=== PATIENT | male | born 1940 | race Caucasian/White ===

== ENCOUNTER 2019-11-01 13:12 | Outpatient (CLI) | payer MEDICARE, MEDICAID, SELFPAY | END 2019-11-01 13:13 | disposition home or self-care (01) | PROVIDERS: Family Provider Family Medicine; PCP Nurse Practitioner Family; Visit Provider Thoracic Surgery (Cardiothoracic Vascular Surgery) | DX: E11.621 Type 2 diabetes mellitus with foot ulcer (principal); L97.512 Non-pressure chronic ulcer of other part of right foot with fat layer exposed; M25.571 Pain in right ankle and joints of right foot; L98.499 Non-pressure chronic ulcer of skin of other sites with unspecified severity | CPT/HCPCS: 11042; 73630; G0463; L3260 ==

== ENCOUNTER 2019-11-01 15:20 | Outpatient (CLI) | payer MEDICARE, MEDICAID, SELFPAY ==
--- NOTE | 2019-11-01 15:31 | XR_ITS ---
WS: [id number] XR foot RT min 3V* [id number] REASON FOR EXAM: PAIN, REDNESS, NON-HEALING ULCER, R/O OSTEO FINDINGS: 3 views of the right foot did not show definite osteomyelitis or destructive changes of the phalanges, metatarsals, tarsals. The calcaneus was normal. There is spurring off the anterior talus. XR/XR foot RT min 3V* [id number] IMPRESSION: Essentially negative bony outline of the foot.
== END 2019-11-01 15:21 | disposition home or self-care (01) ==
LOC: RAD 15:27
PROVIDERS: Family Provider Family Medicine; PCP Nurse Practitioner Family; Visit Provider Thoracic Surgery (Cardiothoracic Vascular Surgery)
DX: M25.571 Pain in right ankle and joints of right foot (principal); L98.499 Non-pressure chronic ulcer of skin of other sites with unspecified severity
CPT/HCPCS: 73630

== ENCOUNTER 2019-11-08 09:06 | Outpatient (CLI) | payer MEDICARE, MEDICAID, SELFPAY | END 2019-11-08 09:07 | disposition home or self-care (01) | LOC: WOUND 09:07 | PROVIDERS: Family Provider Family Medicine; PCP Nurse Practitioner Family; Visit Provider Thoracic Surgery (Cardiothoracic Vascular Surgery) | DX: E11.621 Type 2 diabetes mellitus with foot ulcer (principal); L97.512 Non-pressure chronic ulcer of other part of right foot with fat layer exposed; R52 Pain, unspecified; L97.909 Non-pressure chronic ulcer of unspecified part of unspecified lower leg with unspecified severity | CPT/HCPCS: 11042; 93970 ==

== ENCOUNTER 2019-11-08 10:41 | Outpatient (CLI) | payer MEDICARE, MEDICAID, SELFPAY ==
--- NOTE | 2019-11-08 10:48 | USCV_ITS ---
Jj Johansen Jr Age: 78 Gender: M : 1940 Exam Date: 11/08/2019 10:56 Ordering Phys: Elvin Centeno MD (Andy) ([email or web address]) Technologist: Gaurav Cisneros Exam Location: [facility] [place] Indication: HISTORY: non healing ulcer PROCEDURES: Bilateral duplex Venous Insufficiency study of the Deep and Superficial systems was carried out according to normal protocol with the patient in supine positon for deep system and dependent position for the superficial system. FINDINGS: There is no evidence of bilateral deep vein thrombosis. No evidence of superficial thrombosis in the bilateral saphenous system. No evidence of reflux was noted in the RIGHT deep venous system. Reflux is demonstrated in the deep venous system at the level of the LEFT Femoral and Popliteal veins. No venous reflux noted in the RIGHT greater saphenous vein. No venous reflux noted in the RIGHT small saphenous vein. Venous reflux was demonstrated in the LEFT SFJ with a spectral display of greater than 500 milliseconds. No venous reflux noted in the LEFT greater saphenous vein. No venous reflux noted in the LEFT small saphenous vein. CONCLUSIONS No evidence of DVT in the above-mentioned identifiable veins. Significant deep venous reflux of greater than 1000 ms were noted at the left femoral and popliteal veins. Significant venous reflux of greater than 500 ms(589 msec) was noted at the left saphenofemoral junction. The venous dimensions, depth from the surface and reflux times are as mentioned above. No similar previous studies are available for comparison Dr Marilee Ness MD [facility] (Electronically Signed) Final Date: 09 Nov 2019 08:03 S
== END 2019-11-08 10:42 | disposition home or self-care (01) ==
LOC: RAD 10:46
PROVIDERS: Family Provider Family Medicine; PCP Nurse Practitioner Family; Visit Provider Thoracic Surgery (Cardiothoracic Vascular Surgery)
DX: R52 Pain, unspecified (principal); L97.909 Non-pressure chronic ulcer of unspecified part of unspecified lower leg with unspecified severity
CPT/HCPCS: 93970

== ENCOUNTER 2019-11-14 14:30 | Outpatient (CLI) | payer MEDICARE, MEDICAID, SELFPAY ==
--- NOTE | 2019-11-14 | USCV_ITS ---
Jj Johansen Jr Age: 78 Gender: M : 1940 Exam Date: 11/14/2019 15:17 Ordering Phys: Elvin Centeno MD (Andy) ([email or web address] [place]) Technologist: Bony Johnson [place] [facility] [place]: NON HEALING ULCER Risk Factors: Previous Vascular Surgery: RIGHT LEFT BP: / BP: 135.0/ 0 Waveform Velocity (cm/s) Velocity (cm/s) Waveform Triphasic 228.0 Iliac Prox 141.7 Triphasic Triphasic 212.2 Iliac Mid 119.1 Biphasic Triphasic 194.3 Iliac Distal 130.8 Biphasic Biphasic 245.2 BUSINESS SYSTEMS ARCHITECT 138.5 Monophasic Biphasic 43.0 SFA Prox 70.5 Monophasic Biphasic 58.2 SFA Mid 62.6 Monophasic Monophasic 29.9 SFA Dist 80.5 Monophasic Monophasic 39.5 POP 47.0 Monophasic Monophasic 95.0 BOX CLOSING MACHINE OPERATOR 63.7 Monophasic Monophasic 49.7 DPA 19.0 Monophasic 0.9 DARIUS 1.0 FINDINGS RT BOX CLOSING MACHINE OPERATOR = 123, RT DPA = 117 RIGHT TOE = 67 RT TBI = .50 LT BOX CLOSING MACHINE OPERATOR = 131, LT DPA = 98 LEFT TOE = 83 LT TBI = .61 Elevated velocity and flow turbulence in the right common femoral artery Slightly diminished resting DARIUS on the right side Normal resting DARIUS on the left side CONCLUSIONS Abnormal Doppler velocity and flow turbulence at the right common femoral artery, suggestive of greater than 60% stenosis. No significant arterial obstruction on the left side Consider exercise DARIUS, to better evaluate the functional significance, if clinically indicated Dr Marilee Ness MD [facility] (Electronically Signed) Final Date: 14 Nov 2019 19:46 S
== END 2019-11-14 14:31 | disposition home or self-care (01) ==
PROVIDERS: Family Provider Family Medicine; PCP Nurse Practitioner Family; Visit Provider Thoracic Surgery (Cardiothoracic Vascular Surgery)
DX: M79.604 Pain in right leg (principal); M79.605 Pain in left leg; L53.9 Erythematous condition, unspecified; L97.529 Non-pressure chronic ulcer of other part of left foot with unspecified severity; L97.519 Non-pressure chronic ulcer of other part of right foot with unspecified severity
CPT/HCPCS: 93925

== ENCOUNTER 2019-11-15 08:56 | Outpatient (CLI) | payer MEDICARE, MEDICAID, SELFPAY | END 2019-11-15 08:57 | disposition home or self-care (01) | LOC: WOUND 08:57 | PROVIDERS: Family Provider Family Medicine; PCP Nurse Practitioner Family; Visit Provider Thoracic Surgery (Cardiothoracic Vascular Surgery) | DX: E11.621 Type 2 diabetes mellitus with foot ulcer (principal); L97.512 Non-pressure chronic ulcer of other part of right foot with fat layer exposed | CPT/HCPCS: 11042 ==

== ENCOUNTER 2019-11-22 08:52 | Outpatient (CLI) | payer MEDICARE, MEDICAID, SELFPAY | END 2019-11-22 08:53 | disposition home or self-care (01) | LOC: WOUND 08:53 | PROVIDERS: Family Provider Family Medicine; PCP Nurse Practitioner Family; Visit Provider Thoracic Surgery (Cardiothoracic Vascular Surgery) | DX: E11.621 Type 2 diabetes mellitus with foot ulcer (principal); L97.512 Non-pressure chronic ulcer of other part of right foot with fat layer exposed | CPT/HCPCS: 11042 ==

== ENCOUNTER 2019-11-28 13:10 | Outpatient (CLI) | payer MEDICARE, MEDICAID, SELFPAY ==
--- NOTE | 2019-11-28 | CT_ITS ---
WS: [id number] CT ANGIOGRAPHY OF THE ABDOMINAL AORTA WITH RUNOFF TO THE ANKLES HISTORY: PAIN REDNESS NONHEALING ULCER TECHNIQUE: Arterial injection is performed during imaging to evaluate the aorta and runoff vessels to the ankles. MIP and volume rendering imaging has also been performed. All images are reviewed. All C T scans at [facility] use at least one of these dose optimization techniques: automated ex posure control; mA and/or kV adjustment per patient size (includes targeted exams where dose is match ed to clinical indication); or iterative reconstruction. Contrast: Omnipaque 350; 95 mL IV. DLP: 1406.45 mGycm COMPARISON: 11/14/2019 Benign calcified granuloma at the RIGHT lung base. No pneumonia. Heart is normal size. Small hiatal h ernia. Gallbladder is contracted. Visualized liver, spleen, pancreas, adrenals and RIGHT kidney are n egative. 2 cm cyst in the LEFT kidney. No hydronephrosis within either kidney. Normal renal enhanceme nt. Diffuse mild constipation. Numerous diverticula in the sigmoid colon with no acute inflammation. There is no ascites or adenopathy. Abdominal aorta: Extensive atherosclerotic plaque beginning below the level of the renal arteries. Th ere is no aneurysm. Celiac axis and SMA are widely patent. ARUN is still patent also. Scattered plaque without significant stenosis involving the renal arteries. RIGHT lower extremity arterial system: Moderate calcified plaque throughout the RIGHT common iliac ar hemanth and external iliac artery. Internal iliac artery is completely occluded at its origin. Multifoca l areas of [id number]-fystfpxn stenosis in the external iliac artery. Focal stenosis in the femoral blanka ry. Deep profunda is still patent. Calcified plaque with a high-grade stenosis involving the proximal RIGHT SFA. Multifocal areas of stenoses throughout the SFA to the popliteal artery. There is an cici tional high-grade stenosis mid to distal SFA. Complete occlusion of the distal SFA near Domenico's tere l. Reconstitution at the knee. Scattered plaque in the popliteal artery. High-grade stenosis at the t ibioperoneal trunk although it is still patent. Extensive scattered calcified plaque and intermittent ly visualized arteries below the knee. LEFT lower extremity arterial system: Calcified plaque and intimal thickening in the common iliac art faviola. Heavily calcified and occluded distal LEFT internal iliac artery. The LEFT SFA is occluded proxi lyndon. Deep profunda is patent. Reconstitution through the popliteal region. Heavy calcified plaque a t the tibioperoneal trunk. Scattered plaque throughout the arteries below the knee. Intermittent runo ff is visualized to the ankle via the anterior and peroneal arteries. Mild atherosclerosis of the pos terior tibial artery. SI joints are fused. CT/CT angio abd aorta runof [id number] IMPRESSION: 1. Complete occlusion of the proximal LEFT SFA. Reconstitution at the poplitea l artery with poor enhancement of the anterior. Peroneal arteries to the ankle. 2. Complete occlusion distal RIGHT SFA with reconstitution in the popliteal a rtery. 3. Multifocal areas of significant stenosis, greater than 50% throughout the R IGHT iliac artery, femoral artery and the superficial femoral artery proximal t o the complete occlusion. 4. Poor runoff to the RIGHT ankle via all 3 vessels. 5. Limited runoff to the LEFT ankle via all 3 vessels.
[2019-11-28] MEDS: iodixanol 320 mg/mL 100mL Btl IV (15:03)
[2019-11-28 15:49] LABS: Blood Urea Nitrogen 13 mg/dL (8-23)
== END 2019-11-28 13:11 | disposition home or self-care (01) ==
PROVIDERS: Family Provider Family Medicine; PCP Family Medicine; Visit Provider Thoracic Surgery (Cardiothoracic Vascular Surgery)
DX: R52 Pain, unspecified (principal); L98.499 Non-pressure chronic ulcer of skin of other sites with unspecified severity; I70.8 Atherosclerosis of other arteries
CPT/HCPCS: 75635; 82565; 84520; Q9967

== ENCOUNTER 2019-11-29 08:02 | Outpatient (CLI) | payer MEDICARE, MEDICAID, SELFPAY | END 2019-11-29 08:03 | disposition home or self-care (01) | LOC: WOUND 08:03 | PROVIDERS: Family Provider Family Medicine; PCP Family Medicine; Visit Provider Thoracic Surgery (Cardiothoracic Vascular Surgery) | DX: E11.621 Type 2 diabetes mellitus with foot ulcer (principal); L97.512 Non-pressure chronic ulcer of other part of right foot with fat layer exposed | CPT/HCPCS: 11042 ==

== ENCOUNTER 2019-12-06 08:20 | Outpatient (CLI) | payer MEDICARE, MEDICAID, SELFPAY | END 2019-12-06 08:21 | disposition home or self-care (01) | LOC: WOUND 08:21 | PROVIDERS: Family Provider Family Medicine; PCP Family Medicine; Visit Provider Thoracic Surgery (Cardiothoracic Vascular Surgery) | DX: E11.621 Type 2 diabetes mellitus with foot ulcer (principal); L97.512 Non-pressure chronic ulcer of other part of right foot with fat layer exposed | CPT/HCPCS: 11042; L3260 ==

== ENCOUNTER 2019-12-12 06:10 | Day surgery (SDC) | payer MEDICARE, MEDICAID, SELFPAY ==
[2019-12-12] VITALS (33 sets, daily range): BP systolic 108–147; BP diastolic 47–89; PULSE 58–79; RESP 7–27; TEMP 36.7–36.9; O2SAT 93–100; BMI 32.4
--- NOTE | 2019-12-12 06:00 | XACV_ITS ---
Wt: 88 kg BSA: 2.05 m2 Any Known Allergies: No known allergies Gender: Male : 1940 Exam Type: Invasive Peripheral Vascular Procedure(s): Procedure Description: Peripheral Cath Diagnostic Procedure Procedure Description: Lower extremities' angiography Procedure Description: Peripheral vascular Intervention Procedure Description: PV Balloon Exam Priority: Routine Lower Extremity Diagnostic Findings Patient is a diabetic who has a series of ulcers on the right leg which will not heal. Noninvasive studies are abnormal suggesting a occlusion of the distal superficial femoral artery on the right and a significant lesion in the proximal superficial femoral artery along with multiple other areas of narrowing. It also suggests an occlusion of the left superficial femoral artery. Patient is [place] grade II, category 5; Elkin stage IV. On the right, there is minor plaquing in the common iliac. The internal iliac is occluded on the right. The external iliac is essentially normal. There is minor narrowing of the common femoral artery as it reaches the femoral head. The profunda femoris is patent with some minor plaquing. There is an 80% stenosis of the proximal/ostial superficial femoral artery which is moderately calcified. The remainder of the superficial femoral artery is patent until the adductor canal when it is occluded. That portion contains mild to moderate lesions up to 30%. There is a fairly good-sized collateral vessel which emanates from the occluded portion of the SFA and then reconstitutes the vessel distally near the beginning of the popliteal artery. The popliteal artery contains multiple 50% stenoses along its course. The anterior tibial artery is patent but severely diffusely diseased along the proximal portion. It is then occluded shortly thereafter. The tibial peroneal trunk is mildly diffusely diseased. The peroneal artery and posterior tibial arteries are patent to the ankle but contain moderate diffuse disease. On the left there is minor plaquing of the common iliac artery. The internal iliac is patent and contains a 60% stenosis in the ostial portion. The external iliac appears normal. The common femoral artery is calcified and contains mild to moderate diffuse disease. At the junction of the takeoff of the superficial femoral artery the vessel is occluded. The profunda femoris is patent and provides collateral flow to the distal vessel. The entire superficial femoral artery is occluded. The occlusion includes the proximal popliteal. The popliteal artery is reconstituted in the midportion just at the patella. The remainder the popliteal is normal. The anterior tibial is moderately diffusely diseased and then is occluded. The tibial peroneal trunk is patent but mildly to moderately diffusely diseased. The peroneal artery and posterior tibial arteries are patent to the ankle. Lower Extremity Interventional Findings Using a seeker catheter, a wire was placed down to the peroneal artery. Initially, 4 mm balloon was used to angioplasty the proximal popliteal, distal SFA and ostial SFA. This opened the vessel nicely. Following this a 6 mm drug-eluting balloon was used to angioplasty the proximal popliteal, entire SFA and distal common femoral artery. An adequate angiographic result was obtained. Conclusions 80% stenosis of the right ostial SFA and 100% occlusion of the distal SFA on the right. Plain old balloon angioplasty performed on both with opening of the distal vessel. Subsequently, drug-eluting balloon angioplasty performed on the proximal popliteal, entire SFA up to and including the distal common femoral. Adequate angiographic result obtained. Left superficial femoral artery occluded at the origin down to the mid popliteal. Two-vessel runoff below the left knee. Recommendations Changed wound care clinic visit from tomorrow until Thursday 4 PM. Medical treatment. Consider intervention to the left leg. Hemodynamic Data Phase:Rest AO : 78.0 mmHg / 49.0 mmHg ( 63.0 mmHg ) @ 2:15:00 AM 101.0 mmHg / 57.0 mmHg ( 77.0 mmHg ) @ 2:28:00 AM 130.0 mmHg / 60.0 mmHg ( 88.0 mmHg ) @ 2:55:00 AM Access Site Site: Left Femoral artery Sheath Size: 6 Fr Hemost... Method: Suture Hemost... Success: Successful Procedure Details Findings Procedure Consent Obtained. Pre-Procedure Time Out. Identified patient by full name and date of as verbalized by the patient/guarantor. Does the consent match the physician's order: Yes. Accurate & Complete Informed Consent: Yes. Inpatient/Outpatient History & Physical on Chart: Yes. If H&P is completed, is and addenduem needed: N/A; If yes, is the addendum complete: N/A. Visualize and Verify Site with Patient/Guarantor: N/A. Relevant Radiology Images available: Yes. Pre-op teaching completed and patient verbalized understanding. The risks, benefits, and alternatives of sedation and/or procedure were discussed by physician. The patient agrees to continue. Procedure started. Correct patient, site and procedure confirmed by cath team. Current diagnosis: PAD. PERRLA. Strong, equal hand jig builder bilaterally. Lungs clear x 5 lobes. IV Site on Arrival: 20 gauge in the right anticubital. IV Fluids: 0.9% NaCl at KVO. 0 mL infused prior to custodial laborer. Pre Procedural Pulses: bilateral dorsalis pedis was Doppled. Pre Procedural Pulses: bilateral posterior tibial was Doppled. Pre Procedural Pulses: bilateral radial was 3+. Oxygen started at 2liters/min via nasal canula. bilateral groins was prepped with chloroprep then draped in the usual sterile fashion. Physician notified. Baseline sample Acquired. HR: 61 BPM. Equipment: 6F - Femoral. Cardiac Cath Pack. ACIST Manifold Kit Model BT 2000. Heparinized Saline (2 units/mL), 1000 mL bag. Physician arrived. Physician scrubbed in. Time out performed with cath team. Lidocaine 1% infiltrated to the left groin. Arterial access obtained. A 5FrFr UF catheter in over wire. Abdominal aortogram performed in DANIELS @ 10 mL/sec for a total of 30 mL. [place] wire inserted. Catheter out. A 5FrFr RIM catheter in over wire. [place] wire removed. right leg runoff 10ml/sec for a total of 30ml. [place] wire inserted. catheter removed. 6FR short sheath exchanged for a 6FR long sheath. Side port of sheath attached to Normal Saline flush at KVO to maintain patency. seeker inserted over glidewire. Patient's family updated. Family requested doctor to call when procedure complete. [place] wire removed. Hand injection performed. [place] wire inserted. seeker removed. Inflation number : 1 A AB ARMADA 35 OTW [id number] was prepped and advanced across the Distal Superficial Femoral, Right , then inflated to 8 KARLOS for 1:00 seconds. Inflation number: 2 The AB ARMADA 35 OTW [id number] was reinflated across the Distal Superficial Femoral, Right, to 8 KARLOS for 1:03 seconds. Inflation number: 1 The AB ARMADA 35 OTW [id number] was reinflated across the Proximal Superficial Femoral, Right, to 8 KARLOS for 1:03 seconds. Balloon out. results checked 10ml/sec for a total of 20ml. Inflation number : 3 A Bard Lutonix 035 [id number] was prepped and advanced across the Distal Superficial Femoral, Right , then inflated to 6 KARLOS for 0:34 seconds. Inflation number: 2 The Bard Lutonix 035 6.x 220 mm was reinflated across the Proximal Superficial Femoral, Right, to 6 KARLOS for 0:45 seconds. Balloon out. exchanged flexor sheath for a fresh one. results checked 10ml/sec for a total of 20ml. 6fr long sheath exchanged for a 6 fr short sheath. glide wire removed. left leg runoff 10ml/sec for a total of 30ml. A Suture was successful obtaining hemostatsis at the Left Femoral artery insertion site. Sheath(s) sutured into position with 2-0 silk and sterile 4x4's and Op-site applied over the site. No oozing or signs and symptoms of hematoma noted. Arterial sheath flushed and connected to tranducer and pressure bag with heparinized saline. Post Procedure: Pulses reassessed and unchanged. PERRLA. Strong, equal hand jig builder bilaterally. No VTE prophylaxis required. Medication's Wasted: Lidocaine 1% = 10 mL. Medication's Wasted: Heparin = 3000 units. Total IV fluids: 85 mL. Fluoro: 16:09. Contrast type used: Visipaque 320 mgI/mL, 500 mL bottle. [id number]. Post-op diagnosis: PAD. Complications: none. Estimated blood loss: 5mL-10mL. Procedure completed. Patient transferred by bed to 1st floor. Vital chart was stopped. Procedure Medications Start: 7:06 AM Stop: 7:06 AM Medication: Versed Amount: 1 mg Route: I.V. Start: 7:06 AM Stop: 7:06 AM Medication: Fentanyl Amount: 50 mcg Route: I.V. Start: 7:33 AM Stop: 7:33 AM Medication: Versed Amount: 1 mg Route: I.V. Start: 8:03 AM Stop: 8:03 AM Medication: Fentanyl Amount: 50 mcg Route: I.V. I, the attending physician, have reviewed and verified all procedure medications. Yes, all medications given per verbal order History/Risk Factors Hypertension: Yes Dyslipidemia: Yes Diabetic Therapy: Oral Peripheral Arterial Disease (PAD): Yes Myocardial Infarction ([place]): No Obesity: Yes Tobacco Use: Former Prior Interventions PCI: No CABG: No Valve Surgery: No Report Signatures Finalized by:Dr. Tomy Banks MD on 12/12/2019 8:55:32 AM
[2019-12-12] MEDS: diphenhydrAMINE 50 mg Capsule PO (06:22)
[2019-12-12 06:41] LABS: Basophils % 0.5 %; Eosinophils # 0.1 10^3/uL (0.0-0.8); Eosinophils % 2.4 %; Hematocrit 44.5 % (42.0-52.0); Hemoglobin 14.2 g/dL (11.7-16.6); Lymphocytes % 17.3 %; Mean Corpuscular HGB Conc 31.9 g/dL (30.0-36.0); Mean Corpuscular Volume 93.9 fL (80-94); Monocytes # 0.5 10^3/uL (0.2-0.9); Monocytes % 8.9 %; Neutrophils # 3.9 10^3/uL (1.8-7.7); Neutrophils % 70.7 %; Nucleated Red Blood Cells % 0 %; Platelet Count 140 10^3/cmm (130-400); Red Blood Count 4.74 10^6/uL (4.1-5.3); White Blood Count 5.5 10^3/uL (4.0-10.0)
[2019-12-12 06:51] LABS: INR 1.61 (0.8-1.2)
[2019-12-12 06:56] LABS: Anion Gap 14.6 (5-19); Blood Urea Nitrogen 20 mg/dL (8-23); Calcium 9.2 mg/dL (8.5-10.5); Carbon Dioxide 25 mmol/L (22-29); Chloride 105 mmol/L (98-107); Creatinine Clr Calc Pharmacy 54.7579; Glucose 129 mg/dL (65-115); Osmolality Calculated 290 mOsm/kg (285-295); Potassium 3.6 mmol/L (3.5-5.1); Sodium 141 mmol/L (136-145)
[2019-12-12] MEDS: sodium chloride 0.9% 1,000 ML 100 ML IV (08:30)
--- NOTE | 2019-12-12 09:52 | PC.CHAP ---
Pastoral Care Encounter/Spiritual Assessment Type of Contact [] Declined lumber driver visit [] Patient/Family/Request visit [] Outpatient visit [] Follow-up visit [] Physician referral [] Code/Alert [x] Routine visit [] Staff referral [] Actively dying [] Patient sleeping [] Family support [] [] Out of room [] Palliative care [] [] Receiving care in room [] Pre-surgical visit [] Trauma [] Long length of stay [] ICU visit [] Other: Relational/Emotional Strength [] Patient feels connected with others/family/visitors/staff [] Distress [] Loneliness/isolation [] Abandonment Spirituality of Patient [] Person of Nupur [] Attends Episcopal of their Nupur [] Believes in Prayer [] Reads Bible or Mandaen materials [] There are Spiritual issues to be addressed Tag Writer Interventions [x] Prayer [] Active listening [] Non-anxious presence [] Spiritual/emotional support [] Crisis/trauma care [] Spiritual counseling [] Bereavement support [] Provided bereavement packet [] Provided Bible/devotional materials [] Provided toy/stuffed animal, coloring book to patient or family member [] Provided Communion [] Anointing/[place] [] Salvation [x] Completed spiritual assessment [] Other: Impact on Illness or Injury [] Angry [] Fearful [] Anxious [] Often cries [] Exhaustion [] Unable to work [] Unable to attend zoroastrian [] Unable to walk/stand [] Unable to read [] Unable to drive [] Unable to eat/drink [] Unable to sleep [] Unable to be with family [] Patient intubated [] Other: Summary Patient just arrived in room. Staff present, prayed with other for breakfast. Time spent with patient 5 min
--- NOTE | 2019-12-12 10:46 | PC.NURSE ---
Sheath pulled at 1020. Hemostasis obtained at 1040. No bleeding noted, no hematoma noted. Patient tolerated procedure well with fentanyl given. Will continue to monitor closely.
[2019-12-12] MEDS: fentaNYL 50 mcg/mL INJ 2mL IVP (10:48)
[2019-12-12 11:19] LABS: Glucose Point of Care 119 mg/dL (70-110)
--- NOTE | 2019-12-12 12:03 | PM.EVENT ---
Event Note Event Note: I was called by the nurse on the floor short time ago stating that when the patient's sheath was pulled he developed a hematoma. I went to see the patient. He is not complaining of any pain in the groin, abdomen or back. Examination reveals a very small fullness in the area of the sheath removal. No significant hematoma is noted. No bleeding is noted. Patient's leg is warm. His pulses are not palpable in the left leg however they are dopplerable. His superficial femoral artery is closed at the origin all the way down through where it reconstitutes via collaterals at the level of the popliteal. The right leg is also warm to the touch with dopplerable pulses.
[2019-12-12 16:30] LABS: Glucose Point of Care 188 mg/dL (70-110)
[2019-12-12] MEDS: topiramate 25 mg Tablet 50 MG PO (17:13)
[2019-12-12 20:06] LABS: Glucose Point of Care 229 mg/dL (70-110)
[2019-12-12] MEDS: atorvastatin 40 mg Tablet 20 MG PO (21:01)
[2019-12-13 03:00] VITALS: BP 100/54; PULSE 76; RESP 18; O2SAT 94
[2019-12-13 03:54] LABS: Basophils # 0.1 10^3/uL (0.0-0.1); Basophils % 0.7 %; Eosinophils # 0.1 10^3/uL (0.0-0.8); Eosinophils % 1.3 %; Hematocrit 39.9 % (42.0-52.0); Hemoglobin 12.6 g/dL (11.7-16.6); Lymphocytes # 0.6 10^3/uL (0.8-4.8); Lymphocytes % 9.5 %; Mean Corpuscular HGB Conc 31.6 g/dL (30.0-36.0); Mean Corpuscular Hemoglobin 29.2 pg (28.0-34.0); Mean Corpuscular Volume 92.6 fL (80-94); Mean Platelet Volume 12.3 fL (7.4-10.4); Monocytes # 0.5 10^3/uL (0.2-0.9); Neutrophils # 5.4 10^3/uL (1.8-7.7); Neutrophils % 80.2 %; Nucleated Red Blood Cells % 0 %; Platelet Count 129 10^3/cmm (130-400); Red Blood Count 4.31 10^6/uL (4.1-5.3); White Blood Count 6.8 10^3/uL (4.0-10.0)
[2019-12-13 04:41] LABS: Anion Gap 14.5 (5-19); Blood Urea Nitrogen 17 mg/dL (8-23); Calcium 8.9 mg/dL (8.5-10.5); Carbon Dioxide 25 mmol/L (22-29); Chloride 105 mmol/L (98-107); Glucose 176 mg/dL (65-115); Osmolality Calculated 291 mOsm/kg (285-295); Potassium 4.5 mmol/L (3.5-5.1); Sodium 140 mmol/L (136-145)
[2019-12-13 05:59] VITALS: RESP 14
--- NOTE | 2019-12-13 06:13 | PM.DCS ---
Discharge Providers Date of Admission: December 12, 2019 Date of Discharge: December 13, 2019 Attending Provider at Discharge: Tomy Banks MD Primary Care Provider: Piotr Wilder Diagnoses at Discharge Discharge Diagnosis (1) PVD (peripheral vascular disease): Status: Acute (2) Non-healing ulcer: Status: Acute (3) Hypertension: Status: Acute (4) Hyperlipidemia: Status: Acute (5) Diabetes: Status: Acute (6) COPD (chronic obstructive pulmonary disease): Status: Acute Reason for Visit Reason for Visit: PAD Hospital Course Hospital Course: Patient underwent angiography via the left common femoral artery. The right superficial femoral artery was found to be completely occluded distally. There was also an 80% stenosis of the ostial right superficial femoral artery. The vessel underwent plain old balloon angioplasty followed by drug-eluting balloon angioplasty with adequate angiographic result. There is two-vessel runoff below the right knee. The left leg reveals a complete occlusion of the ostial left superficial femoral artery with reconstitution down at the level of the popliteal. There is two-vessel runoff below the left knee. Physical Exam Narrative: EXAM NARRATIVE: GENERAL: In general he is awake and alert HEENT: Exam within normal limits. NECK: Supple without jugular vein distention. The carotid upstroke is normal without bruits. BACK: Exam normal. LUNGS: Clear. HEART: Regular rate and rhythm. ABDOMEN: Benign without organomegaly or tenderness. EXTREMITIES: 1+ bilateral edema. There are barely palpable pulses in both groins. There are dopplerable pulses in both popliteals and in the feet. No palpable pulses in the feet. At the time of discharge the left groin entry site is flat, dry and without any bleeding. There is a small bruise at the entry site but no significant hematoma. No pulsatile mass. NEUROLOGIC: Exam normal. SKIN: Unremarkable. Discharge Data Data Completed and Pending: Completed Studies During Hospitalization Category Date Time Status METALIZER FIELD OPERATION request for service Routin e Exams 12/12/19 06:00 Completed Labs from last 24 hours 12/13/19 12/13/19 12/12/19 03:05 03:05 19:55 WBC 6.8 RBC 4.31 Hgb 12.6 Hct 39.9 L MCV 92.6 MCH 29.2 MCHC 31.6 RDW 13.0 Plt Count 129 L MPV 12.3 H Neut % (Auto) 80.2 Lymph % (Auto) 9.5 Robertson % (Auto) 8.0 Eos % (Auto) 1.3 Baso % (Auto) 0.7 Neut # (Auto) 5.4 Lymph # (Auto) 0.6 L Robertson # (Auto) 0.5 Eos # (Auto) 0.1 Baso # (Auto) 0.1 Nucleated RBC % (a uto) 0 Nucleated RBCs # 0.0 PT INR Sodium 140 Potassium 4.5 Chloride 105 Carbon Dioxide 25 Anion Gap 14.5 BUN 17 Creatinine 0.9 Glucose 176 H POC Glucose 229 Calculated Osmolal ity 291 Calcium 8.9 12/12/19 12/12/19 12/12/19 15:54 11:16 06:35 WBC RBC Hgb Hct MCV MCH MCHC RDW Plt Count MPV Neut % (Auto) Lymph % (Auto) Robertson % (Auto) Eos % (Auto) Baso % (Auto) Neut # (Auto) Lymph # (Auto) Robertson # (Auto) Eos # (Auto) Baso # (Auto) Nucleated RBC % (a uto) Nucleated RBCs # PT INR Sodium 141 Potassium 3.6 Chloride 105 Carbon Dioxide 25 Anion Gap 14.6 BUN 20 Creatinine 1.1 Glucose 129 H POC Glucose 188 119 Calculated Osmolal ity 290 Calcium 9.2 12/12/19 12/12/19 06:35 06:35 WBC 5.5 RBC 4.74 Hgb 14.2 Hct 44.5 MCV 93.9 MCH 30.0 MCHC 31.9 RDW 13.0 Plt Count 140 MPV 12.0 H Neut % (Auto) 70.7 Lymph % (Auto) 17.3 Robertson % (Auto) 8.9 Eos % (Auto) 2.4 Baso % (Auto) 0.5 Neut # (Auto) 3.9 Lymph # (Auto) 1.0 Robertson # (Auto) 0.5 Eos # (Auto) 0.1 Baso # (Auto) 0.0 Nucleated RBC % (a uto) 0 Nucleated RBCs # 0.0 PT 19.70 H INR 1.61 H Sodium Potassium Chloride Carbon Dioxide Anion Gap BUN Creatinine Glucose POC Glucose Calculated Osmolal ity Calcium Vitals: Last Vital Signs Temp 98.2 F 12/12/19 23:45 Pulse 76 12/13/19 03:00 Resp 14 12/13/19 05:59 BP 100/54 12/13/19 03:00 Pulse Ox 94 12/13/19 03:00 Discharge Plan Discharge Patient Disposition: Home, Self-Care Condition: Stable Prescriptions: Continued warfarin 2.5 mg Tablet See Rx Instructions .ROUTE .COMPLEX RF: 0 aspirin [Aspir-81] 81 mg Tablet,Delayed Release (Dr/Ec) 81 mg PO DAILY RF: 0 tamsulosin 0.4 mg Capsule 0.8 mg PO DAILY RF: 0 simvastatin 20 mg Tablet 20 mg PO BEDTIME RF: 0 warfarin 5 mg Tablet See Rx Instructions .ROUTE .COMPLEX RF: 0 docusate sodium 100 mg Capsule 100 mg PO EVERY OTHER DAY RF: 0 gabapentin 300 mg Capsule 300 mg PO TID RF: 0 montelukast 10 mg Tablet 10 mg PO DAILY RF: 0 albuterol sulfate [ProAir HFA] 90 mcg/actuation Hfa Aerosol Inhaler 2 puff INHALATION Q6H PRN (Reason: Shortness Of Breath) RF: 0 insulin lispro [Humalog KwikPen Insulin] 100 unit/mL Insulin Pen See Rx Instructions .ROUTE .COMPLEX RF: 0 topiramate 50 mg Tablet 50 mg PO BID RF: 0 coenzyme Q10 200 mg Capsule 200 mg PO DAILY RF: 0 Lantus Solostar U-100 Insulin 100 unit/mL (3 mL) Insulin Pen 50 unit SUBCUT DAILY RF: 0 cholecalciferol (vitamin D3) [Vitamin D3] 50 mcg (2,000 unit) Capsule 50 mcg PO DAILY RF: 0 Breo Ellipta 200-25 mcg/dose Blister With Device 1 inh INHALATION DAILY RF: 0 Trulicity 1.5 mg/0.5 mL Pen Injector 1.5 mg SUBCUT DIRECTED RF: 0 Discharge Orders: Discharge Order (Routine); Ordered 12/13/19 Ordered By: Tomy Banks Referrals: Piotr Wilder [Primary Care Provider] - Celia Owusu FNP [Nurse Practitioner] - 7-10 days (Left groin check, chemistry panel. If left leg symptomatic consider intervention to the left leg in 3 to 4 weeks.) Discharge Diet: Diabetic Discharge Activity: Limit activity as instructed Activity Restrictions/Additional Instructions: No lifting over 10 pounds for 2 days. Be sure to go to wound clinic tomorrow afternoon 4 PM. 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
[2019-12-13 06:17] LABS: Glucose Point of Care 170 mg/dL (70-110)
[2019-12-13 07:00] VITALS: PULSE 76; RESP 14
--- NOTE | 2019-12-13 07:08 | PC.NURSE ---
PATIENT VSS ; IV REMOVED AND PRESSURE DRESSING APPLIED WITH NO BLEEDING NOTED ; PATIENT DENIES ANY PAIN OR ANY OTHER COMPLAINTS AT THIS TIME ; PATIENT LEFT GROIN AREA DRESSING C/D/I WITH MINIMAL BRUISING NOTED ; PATIENT GIVEN DISCHARGE INSTRUCTIONS AND VERBALIZED UNDERSTANDING
[2019-12-13 07:35] VITALS: BP 92/56; PULSE 80; RESP 20; TEMP 36.8; O2SAT 92
[2019-12-13 07:39] VITALS: BP 98/56
--- NOTE | 2019-12-13 07:48 | PC.NURSE ---
PATIENT TO EXIT VIA WHEELCHAIR WITH NO ISSUES ; VSS
[2019-12-13 07:49] VITALS: BP 98/56; RESP 14
== END 2019-12-13 07:50 | disposition home or self-care (01) ==
LOC: CCL 06:28 → CSU 06:52
PROVIDERS: PCP Family Medicine; Visit Provider Internal Medicine Cardiovascular Disease
DX: I70.293 Other atherosclerosis of native arteries of extremities, bilateral legs (principal); L97.512 Non-pressure chronic ulcer of other part of right foot with fat layer exposed; I10 Essential (primary) hypertension; E78.5 Hyperlipidemia, unspecified; E11.9 Type 2 diabetes mellitus without complications; J44.9 Chronic obstructive pulmonary disease, unspecified; E11.621 Type 2 diabetes mellitus with foot ulcer; Z79.01 Long term (current) use of anticoagulants; Z86.718 Personal history of other venous thrombosis and embolism; Z86.711 Personal history of pulmonary embolism
CPT/HCPCS: 12345; 36415; 36416; 37224; 75625; 75716; 80048; 82962; 85025; 85610; 96372; C1725; C1769; C1887; C1894; C2623; J1644; J1815; J2001; J2250; J3010; J7030; Q0163; Q9967

== ENCOUNTER 2019-12-14 14:57 | Outpatient (CLI) | payer MEDICARE, MEDICAID, SELFPAY | END 2019-12-14 14:58 | disposition home or self-care (01) | LOC: WOUND 14:59 | PROVIDERS: PCP Family Medicine; Visit Provider Nurse Practitioner Family | DX: E11.621 Type 2 diabetes mellitus with foot ulcer (principal); L97.512 Non-pressure chronic ulcer of other part of right foot with fat layer exposed | CPT/HCPCS: 11042 ==

== ENCOUNTER 2019-12-21 14:18 | Outpatient (CLI) | payer MEDICARE, MEDICAID, SELFPAY | END 2019-12-21 14:19 | disposition home or self-care (01) | LOC: WOUND 14:19 | PROVIDERS: PCP Family Medicine; Visit Provider Thoracic Surgery (Cardiothoracic Vascular Surgery) | DX: E11.621 Type 2 diabetes mellitus with foot ulcer (principal); L97.512 Non-pressure chronic ulcer of other part of right foot with fat layer exposed | CPT/HCPCS: 11042; 80048; L3260 ==

== ENCOUNTER 2019-12-26 16:02 | Outpatient (CLI) | payer MEDICARE, MEDICAID, SELFPAY ==
--- NOTE | 2019-12-26 | USCV_ITS ---
FayeJj chowdhury Jr Age: 79 Gender: M : 1940 Exam Date: 12/26/2019 16:40 Ordering Phys: Aliya Gamez Technologist: Madina Zuleta Exam Location: [facility] – [place] Indication: swelling HISTORY: Lower extremity swelling. PROCEDURES: Venous duplex imaging was performed in only the left lower extremity. The following venous structures were evaluated: common femoral vein, profunda vein, proximal portion of the greater saphenous vein, superficial femoral vein, and the popliteal vein. In addition, the posterior tibial and peroneal trunk were evaluated. Serial compression, augmentation maneuvers, and spectral Doppler flow evaluation were performed. FINDINGS: Evidence of chronic partial deep vein thrombosis in the left superficial femoral vein at mid level with normal flow dynamics. No other evidence of thrombus seen at this time. Preliminary report was called. CONCLUSIONS No evidence acute thrombus LLE Chronic partial DVT Left superficial femoral vein Ebenezer Cruz MD (Electronically Signed) Final Date: 28 December 2019 14:55 S
== END 2019-12-26 16:03 | disposition home or self-care (01) ==
LOC: RAD 16:07
PROVIDERS: PCP Family Medicine; Visit Provider Nurse Practitioner Family
DX: I82.512 Chronic embolism and thrombosis of left femoral vein (principal); M79.89 Other specified soft tissue disorders; I73.9 Peripheral vascular disease, unspecified; Z98.890 Other specified postprocedural states
CPT/HCPCS: 93971

== ENCOUNTER 2019-12-28 08:09 | Outpatient (CLI) | payer MEDICARE, MEDICAID, SELFPAY | END 2019-12-28 08:10 | disposition home or self-care (01) | LOC: WOUND 08:10 | PROVIDERS: PCP Family Medicine; Visit Provider Thoracic Surgery (Cardiothoracic Vascular Surgery) | DX: E11.621 Type 2 diabetes mellitus with foot ulcer (principal); L97.512 Non-pressure chronic ulcer of other part of right foot with fat layer exposed | CPT/HCPCS: 11042 ==

== ENCOUNTER 2019-12-29 13:19 | Outpatient (CLI) | payer MEDICARE, MEDICAID, SELFPAY ==
--- NOTE | 2019-12-29 13:28 | USCV_ITS ---
Haily Carpio Jj Age: 79 Gender: M : 1940 Exam Date: 12/29/2019 13:57 Ordering Phys: Aliya Gamez Technologist: Gaurav Cisneros Exam Location: [facility] – [place] Indication: HX OF LT ILIAC BY PASS Risk Factors: Previous Vascular Surgery: LT LEG BI PASS RIGHT LEFT BP: 140.0 / 76.00 BP: 140.0/ 72.00 0 0 Waveform Velocity (cm/s) Velocity (cm/s) Waveform Iliac Prox N/A Iliac Mid N/A Iliac Distal N/A ELECTRIFICATION ADVISER N/A SFA Prox N/A SFA Mid N/A SFA Dist N/A POP 59.8 Monophasic BELLHOP CAPTAIN 65.3 Monophasic DPA 32.6 Monophasic DARIUS 0.6 FINDINGS Normal resting DARIUS on the left No Doppler flow signals in the iliac and femoral artery on the left side Monophasic and continuous Doppler waveforms in the posterior tibial and popliteal artery Monophasic waveform in the dorsalis pedis artery CONCLUSIONS Features of total occlusion of the iliac and femoral artery on the left side with possible collateral filling of the popliteal and posterior tibial artery. Abnormal Doppler waveforms suggestive of occlusive disease in the dorsalis pedis artery. Resting DARIUS 0.6 on the left side Dr Marilee Ness MD [facility] (Electronically Signed) Final Date: 29 December 2019 20:05 S
== END 2019-12-29 13:20 | disposition home or self-care (01) ==
LOC: RAD 13:23
PROVIDERS: PCP Family Medicine; Visit Provider Nurse Practitioner Family
DX: L03.116 Cellulitis of left lower limb (principal); M79.89 Other specified soft tissue disorders; Z98.890 Other specified postprocedural states
CPT/HCPCS: 93926

== ENCOUNTER 2020-01-04 07:56 | Outpatient (CLI) | payer MEDICARE, MEDICAID, SELFPAY | END 2020-01-04 07:57 | disposition home or self-care (01) | LOC: WOUND 07:56 | PROVIDERS: PCP Family Medicine; Visit Provider Thoracic Surgery (Cardiothoracic Vascular Surgery) | DX: E11.621 Type 2 diabetes mellitus with foot ulcer (principal); L97.512 Non-pressure chronic ulcer of other part of right foot with fat layer exposed | CPT/HCPCS: 11042 ==

== ENCOUNTER 2020-01-10 08:04 | Observation (INO) | payer MEDICARE, MEDICAID, SELFPAY ==
[2020-01-09 12:36] VITALS: BMI 32.1
[2020-01-10] VITALS (38 sets, daily range): BP systolic 120–144; BP diastolic 58–86; PULSE 54–72; RESP 8–18; TEMP 36.6; O2SAT 93–100
[2020-01-10] MEDS: diphenhydrAMINE 50 mg Capsule PO (07:00)
--- NOTE | 2020-01-10 07:00 | SUR.PREOP ---
Addendum entered by Bacilio Marx RN 01/10/20 07:21: Incorrect date range labs range from 12/12/19 thru 12/21/19. Original Note: MD NOTIFICATION DR CHÁVEZ GIVEN PRE OP LABS DATING 11/10 THRU 12/20 FOR CBC, BMP AND PT/INR. PATIENT OFF COUMADIN INSTUCTED CORRECTLY. ORDERS TO USE LABS FROM ABOVE DATE RANGE FOR TODAY'S PROCEDURE. NO NEW LABWORK REQUIRED PREOPERATIVELY. NOTED.
--- NOTE | 2020-01-10 07:00 | XACV_ITS ---
Wt: 88 kg BSA: 2.04 m2 Any Known Allergies: No known allergies Gender: Male : 1940 Exam Type: Invasive Peripheral Vascular Procedure(s): Procedure Description: Peripheral Cath Diagnostic Procedure Procedure Description: Lower extremities' angiography Exam Priority: Routine Lower Extremity Diagnostic Findings This patient has known peripheral arterial disease and has had a intervention to the distal right superficial femoral artery for an ulcer that would not heal. At that time he was found to have a completely occluded left superficial femoral artery from the origin down to the popliteal. He is brought back today to attempt an intervention. He is Michelle grade II, category 5; Elkin stage IV. Today only the left lower extremity was evaluated. The common iliac, external iliac and common femoral arteries are patent and essentially normal. The internal iliac is patent but has a 90% stenosis at the proximal aspect. There is a flush occlusion of the superficial femoral artery on the left. A tiny stump is seen. The profunda femoris is widely patent and hypertrophied and provides the collateral flow distally. The vessel reconstitutes at the level of the popliteal. The popliteal is then seen as basically normal. The anterior tibial is occluded shortly after its origin. The tibial peroneal trunk is patent. The peroneal is patent to the ankle as is the posterior tibial. Several attempts were made with wires and a seeker catheter to enter the superficial femoral artery from above. This was unsuccessful. Conclusions Occluded left superficial femoral artery at the origin. Unsuccessful attempt at intervention. Recommendations Options are continued medical therapy if he is doing well clinically versus an attempt at intervention from below versus femoral-popliteal bypass. Access Site Site: Right Femoral artery Sheath Size: 6 Fr Hemost... Success: Unsuccessful Procedure Details Findings Procedure Consent Obtained. Pre-Procedure Time Out. Identified patient by full name and date of as verbalized by the patient/guarantor. Does the consent match the physician's order: Yes. Accurate & Complete Informed Consent: Yes. Inpatient/Outpatient History & Physical on Chart: Yes. If H&P is completed, is and addenduem needed: No; If yes, is the addendum complete: N/A. Visualize and Verify Site with Patient/Guarantor: N/A. Relevant Radiology Images available: Yes. Pre-op teaching completed and patient verbalized understanding. The risks, benefits, and alternatives of sedation and/or procedure were discussed by physician. The patient agrees to continue. Procedure started. Correct patient, site and procedure confirmed by cath team. Current diagnosis: PAD. PERRLA. Strong, equal hand die cutter bilaterally. Lungs clear x 5 lobes. Oxygen started at 2liters/min via nasal canula. bilateral groins was prepped with chloroprep then draped in the usual sterile fashion. Equipment: Peripheral. Cardiac Cath Pack. ACIST Manifold Kit Model BT 2000. Heparinized Saline (2 units/mL), 1000 mL bag. Physician arrived. IV Site on Arrival: 18 gauge in the right anticubital. IV Fluids: 0.9% NaCl at KVO. 0 mL infused prior to specialist employee labor relations. Pre Procedural Pulses: bilateral dorsalis pedis was Doppled. Pre Procedural Pulses: bilateral posterior tibial was Doppled. Pre Procedural Pulses: bilateral radial was 2+. Baseline sample Acquired. HR: 63 BPM. Physician scrubbed in. Correct Patient: Yes; Correct Procedure: Yes; Correct Site: Yes; Correct Patient Position: Yes; Correct Supplies: Yes; Dried Flammable Prep: Yes; Blood Products Available: No;. Lidocaine 1% infiltrated to the right groin. Arterial access obtained. A 5FrFr RIM catheter in over wire. Left leg runoff performed at 10mL for a total of 30mL. Glidewire inserted. 6Fr sheath exchanged for 6FR 142cm flexor sheath. Side port of sheath attached to Normal Saline flush at KVO to maintain patency. Seeker inserted over the glidewire. Seeker and Glidewire out. 6FR flexor sheath exchanged for 6FR short sheath. Sheath(s) sutured into position with 2-0 silk and sterile 4x4's and Op-site applied over the site. No oozing or signs and symptoms of hematoma noted. Arterial sheath flushed and connected to tranducer and pressure bag with heparinized saline. Post Procedure: Pulses reassessed and unchanged. A 16Fr rios catheter was inserted without resistance maintaining sterile technique. Bag to gravity with clear urine returning. PERRLA. Strong, equal hand die cutter bilaterally. No VTE prophylaxis required. Medication's Wasted: Heparin = 1000 units. Medication's Wasted: Lidocaine 1% = 10 mL. Medication's Wasted: Other = Versed 1 mg. Medication's Wasted: Other = Fentanyl 60mcg. Total IV fluids: 41.5 mL. Contrast type used: Visipaque 320 mgI/mL, 500 mL bottle. Post-op diagnosis: PAD. Complications: None. Estimated blood loss: 5mL-10mL. Procedure completed. Vital chart was stopped. Patient transferred by bed to 1st floor. Procedure Medications Start: 7:22 AM Stop: 7:22 AM Medication: Versed Amount: 1 mg Route: I.V. Start: 7:22 AM Stop: 7:22 AM Medication: Fentanyl Amount: 50 mcg I, the attending physician, have reviewed and verified all procedure medications. Yes, all medications given per verbal order History/Risk Factors Hypertension: Yes Dyslipidemia: Yes Diabetic Therapy: Insulin Peripheral Arterial Disease (PAD): Yes Myocardial Infarction (NH): No Obesity: No Renal Disease: No Tobacco Use: Former Prior Interventions PCI: No CABG: No Valve Surgery: No Report Signatures Finalized by:Dr. Tomy Banks MD on 01/10/2020 8:12:37 AM
[2020-01-10] MEDS: sodium chloride 0.9% 1,000 ML 100 ML IV (08:40)
--- NOTE | 2020-01-10 09:49 | PC.NURSE ---
Sheath removed per orders Pressure held for 20 min no hematoma noted patient tolerated well Vital signs WNL
--- NOTE | 2020-01-10 10:50 | PC.NURSE ---
Contacted Dr Banks with concerns of patient being diabetic with no accu checks or insulin coverage ordered instructions to perform accu checks and order a med dose s/s novolog hs
[2020-01-10 11:20] LABS: Glucose Point of Care 260 mg/dL (70-110)
--- NOTE | 2020-01-10 11:31 | PC.CHAP ---
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 [] Patient/Family/Request visit [] Outpatient visit [] Follow-up visit [] Physician referral [] Code/Alert [] Routine visit [] Staff referral [] Actively dying [] Patient sleeping [] Family support [] [] Out of room [] Palliative care [] [] Receiving care in room [] Pre-surgical visit [] Trauma [] Long length of stay [] ICU visit [] Other: Relational/Emotional Strength [] Patient feels connected with others/family/visitors/staff [] Distress [] Loneliness/isolation [] Abandonment Spirituality of Patient [] Person of Nupur [] Attends Sabianist of their Nupur [] Believes in Prayer [] Reads Bible or Scientology materials [] There are Spiritual issues to be addressed Machine Washer Interventions [] Prayer [] Active listening [] Non-anxious presence [] Spiritual/emotional support [] Crisis/trauma care [] Spiritual counseling [] Bereavement support [] Provided bereavement packet [] Provided Bible/devotional materials [] Provided toy/stuffed animal, coloring book to patient or family member [] Provided Communion [] Anointing/Entriken [] Salvation [] Completed spiritual assessment [] Other: Impact on Illness or Injury [] Angry [] Fearful [] Anxious [] Often cries [] Exhaustion [] Unable to work [] Unable to attend scientologist [] Unable to walk/stand [] Unable to read [] Unable to drive [] Unable to eat/drink [] Unable to sleep [] Unable to be with family [] Patient intubated [] Other: Summary Declined open hearth furnace operator visit Time spent with patient 5 mins
--- NOTE | 2020-01-10 12:23 | PC.NURSE ---
Patient arrived to unit at 0805. Patient has right sheath in right femoral artery. Pressure bag in place at arrival. Report received and v/s are all WNL.
[2020-01-10 16:08] LABS: Glucose Point of Care 222 mg/dL (70-110)
--- NOTE | 2020-01-10 16:15 | PC.NURSE ---
Patient discharged home at this time. discharge instructions as well as surgical puncture site care instructions given and explained. IV discontinued, cath intact min bleeding noted bandage applied. Patient assisted to private vehicle via wheel chair by staff awll belongings and discharge instructions in hand.
--- NOTE | 2020-01-10 16:22 | PC.NURSE ---
Patient left unit via w/c at 1613. Patient had all personal belongings and discharge instructions in hand. Discharge instructions were explained to patient and patient verbalized understanding of activity restrictions and post procedure instructions. Patient denied any further questions. IV discontinued and catheter tip intact, patient tolerated well.
--- NOTE | 2020-01-11 12:29 | PC.RESP ---
Pulmonary Rehab information sent to patient.
== END 2020-01-10 16:13 | disposition home or self-care (01) ==
LOC: CSU 08:05
PROVIDERS: Admitting Provider Internal Medicine Cardiovascular Disease; PCP Family Medicine; Visit Provider Internal Medicine Cardiovascular Disease
DX: I77.1 Stricture of artery (principal); I73.9 Peripheral vascular disease, unspecified; E11.9 Type 2 diabetes mellitus without complications; Z86.718 Personal history of other venous thrombosis and embolism; Z86.711 Personal history of pulmonary embolism; Z79.01 Long term (current) use of anticoagulants; Z79.82 Long term (current) use of aspirin; Z79.4 Long term (current) use of insulin; N40.0 Benign prostatic hyperplasia without lower urinary tract symptoms; J44.9 Chronic obstructive pulmonary disease, unspecified; E78.5 Hyperlipidemia, unspecified; I10 Essential (primary) hypertension; Z82.49 Family history of ischemic heart disease and other diseases of the circulatory system; Z83.3 Family history of diabetes mellitus; Z87.891 Personal history of nicotine dependence
CPT/HCPCS: 36416; 75710; 82962; 96360; 96361; 96372; C1769; C1887; C1894; G0378; J1644; J1815; J2250; J3010; J7030; Q0163; Q9967

== ENCOUNTER 2020-01-17 08:02 | Outpatient (CLI) | payer MEDICARE, MEDICAID, SELFPAY | END 2020-01-17 08:03 | disposition home or self-care (01) | LOC: WOUND 08:03 | PROVIDERS: PCP Family Medicine; Visit Provider Thoracic Surgery (Cardiothoracic Vascular Surgery) | DX: E11.621 Type 2 diabetes mellitus with foot ulcer (principal); L97.512 Non-pressure chronic ulcer of other part of right foot with fat layer exposed | CPT/HCPCS: 11042; L4387 ==

== ENCOUNTER 2020-01-24 07:49 | Outpatient (CLI) | payer MEDICARE, MEDICAID, SELFPAY | END 2020-01-24 07:50 | disposition home or self-care (01) | LOC: WOUND 07:51 | PROVIDERS: PCP Registered Nurse; Visit Provider Thoracic Surgery (Cardiothoracic Vascular Surgery) | DX: E11.621 Type 2 diabetes mellitus with foot ulcer (principal); L97.512 Non-pressure chronic ulcer of other part of right foot with fat layer exposed | CPT/HCPCS: 11042; L3260 ==

== ENCOUNTER → 2020-01-25 08:22 | Outpatient (BNVA) | payer MEDICARE, MEDICAID, SELFPAY | PROVIDERS: PCP Registered Nurse; Visit Provider Internal Medicine | DX: E55.9 Vitamin D deficiency, unspecified (principal); E78.5 Hyperlipidemia, unspecified; E11.42 Type 2 diabetes mellitus with diabetic polyneuropathy; E11.649 Type 2 diabetes mellitus with hypoglycemia without coma; Z79.4 Long term (current) use of insulin | CPT/HCPCS: 80053; 80061; 82044; 82306; 83036; 99203 ==

== ENCOUNTER 2020-01-31 08:00 | Outpatient (CLI) | payer MEDICARE, MEDICAID, SELFPAY | END 2020-01-31 08:01 | disposition home or self-care (01) | LOC: WOUND 08:04 | PROVIDERS: PCP Registered Nurse; Visit Provider Thoracic Surgery (Cardiothoracic Vascular Surgery) | DX: E11.621 Type 2 diabetes mellitus with foot ulcer (principal); L97.512 Non-pressure chronic ulcer of other part of right foot with fat layer exposed; I73.9 Peripheral vascular disease, unspecified | CPT/HCPCS: 11042; 85610 ==

== ENCOUNTER 2020-02-03 13:05 | Outpatient (CLI) | payer MEDICARE, MEDICAID, SELFPAY | END 2020-02-03 13:06 | disposition home or self-care (01) | LOC: WOUND 13:06 | PROVIDERS: PCP Registered Nurse; Visit Provider Thoracic Surgery (Cardiothoracic Vascular Surgery) | DX: L89.893 Pressure ulcer of other site, stage 3 (principal) | CPT/HCPCS: 81000; 99212; A6446 ==

== ENCOUNTER 2020-02-14 08:20 | Outpatient (CLI) | payer MEDICARE, MEDICAID, SELFPAY | END 2020-02-14 08:21 | disposition home or self-care (01) | LOC: WOUND 08:21 | PROVIDERS: PCP Registered Nurse; Visit Provider Nurse Practitioner Family | DX: E11.621 Type 2 diabetes mellitus with foot ulcer (principal); L97.512 Non-pressure chronic ulcer of other part of right foot with fat layer exposed; Z79.01 Long term (current) use of anticoagulants | CPT/HCPCS: 11042; 85610 ==

== ENCOUNTER 2020-02-21 08:44 | Outpatient (CLI) | payer MEDICARE, MEDICAID, SELFPAY | END 2020-02-21 08:45 | disposition home or self-care (01) | LOC: WOUND 08:44 | PROVIDERS: PCP Registered Nurse; Visit Provider Thoracic Surgery (Cardiothoracic Vascular Surgery) | DX: E11.621 Type 2 diabetes mellitus with foot ulcer (principal); L97.512 Non-pressure chronic ulcer of other part of right foot with fat layer exposed | CPT/HCPCS: 11042; L3260 ==

== ENCOUNTER 2020-02-23 11:14 | Outpatient (CLI) | payer MEDICARE, MEDICAID, SELFPAY ==
--- NOTE | 2020-02-23 11:27 | USCV_ITS ---
Fayetrenton Jr Jj Age: 79 Gender: M : 1940 Exam Date: 02/23/2020 11:37 Ordering Phys: Elvin Centeno MD (Andy) ([email or web address]) Technologist: Gaurav Cisneros Exam Location: [facility] – [place] Indication: RT GREAT TOE ULCER Risk Factors: Previous Vascular Surgery: RIGHT LEFT Waveform Velocity (cm/s) Velocity (cm/s) Waveform Triphasic Iliac Prox 109.9 Triphasic 117.8 Iliac Mid Monophasic 127.3 Iliac Distal Monophasic 101.4 AUTO CARRIER DRIVER Monophasic 31.9 SFA Prox Monophasic 43.3 SFA Mid Monophasic SFA Dist 34.7 Monophasic 39.9 POP Monophasic 43.9 POLITICAL SCIENCE RESEARCH ASSISTANT Monophasic 24.5 DPA 1.3 DARIUS FINDINGS TBI 0.3 - 2ND TOE Normal resting DARIUS on the right side Mild to moderate diffuse plaques in the iliac and femoral arteries Abnormal resting TBI on the right side Abnormal Doppler waveforms CONCLUSIONS Normal resting DARIUS with abnormal resting TBI, suggestive of moderately severe arterial disease involving the distal vessels in the foot. Mild to moderate diffuse plaques in the iliac and femoral artery on the right side. Consider CTA or angiogram, to better evaluate the distal arteries, if clinically indicated Dr Marilee Ness MD [facility] (Electronically Signed) Final Date: 23 February 2020 20:24 S
== END 2020-02-23 11:15 | disposition home or self-care (01) ==
LOC: US 11:16
PROVIDERS: PCP Registered Nurse; Visit Provider Thoracic Surgery (Cardiothoracic Vascular Surgery)
DX: M79.604 Pain in right leg (principal); L53.9 Erythematous condition, unspecified; L97.919 Non-pressure chronic ulcer of unspecified part of right lower leg with unspecified severity; I70.8 Atherosclerosis of other arteries
CPT/HCPCS: 93926

== ENCOUNTER 2020-02-28 07:59 | Outpatient (CLI) | payer MEDICARE, MEDICAID, SELFPAY | END 2020-02-28 08:00 | disposition home or self-care (01) | LOC: WOUND 07:59 | PROVIDERS: PCP Registered Nurse; Visit Provider Thoracic Surgery (Cardiothoracic Vascular Surgery) | DX: E11.621 Type 2 diabetes mellitus with foot ulcer (principal); L97.512 Non-pressure chronic ulcer of other part of right foot with fat layer exposed | CPT/HCPCS: 11042 ==